=== PATIENT | female | born 1970 | race Caucasian/White ===

== ENCOUNTER 2018-10-23 19:47 | Emergency (ER) | payer OTHER ==
[~2018-10-23] VITALS: Ht 154.9 cm; Wt 55.3 kg
[~2018-10-23 19:47] MED LIST: ACEBUTCAFT PO; ALBU90OI INH; ALPR.5 PO; ASPI325; AZIT250 PO; Bactrim Ds Tab1 EACH PO; Benadryl 50 mg50 MG PO; CIPR500 PO; CLON.1 PO; CLON2 PO; CODBUTACEC PO; CODGUAEL PO; CONEST.9 PO; CRUTCH4 USE; CYCL10 PO; FLONASE ALLERG9.9 ML; HYDACE10B PO; HYDACE5 PO; IBUP200 PO; IBUP600 PO; LEVFLO500 PO; LOSA50 PO; METH10 PO; MULTIVITAMIN; NAPR220 PO; OXYACE5T PO; PIRO10 PO; PRED20 PO; PREMARIN; PROM25 PO; PSEU30 PO; Pepcid40 MG PO; Prednisone20 MG PO; TRAM50 PO; Vistaril25 MG PO; Voltaren100 GM TP
[2018-10-23] MEDS ORDERED: Bactrim Ds Tab1 EACH PO (19:58)
== END 2018-10-23 19:55 | disposition home or self-care (01) ==
LOC: ER 19:47
DX: L02.411 Cutaneous abscess of right axilla (principal); Z91.030 Bee allergy status; Z79.899 Other long term (current) drug therapy; Z79.52 Long term (current) use of systemic steroids; G43.909 Migraine, unspecified, not intractable, without status migrainosus; I25.10 Atherosclerotic heart disease of native coronary artery without angina pectoris; F17.210 Nicotine dependence, cigarettes, uncomplicated
CPT/HCPCS: 99283

== ENCOUNTER → 2019-04-04 | Outpatient (CLI) | payer OTHER ==
[2019-04-04 12:21] LABS: Source, Urine Clean Catch
[2019-04-04 16:10] LABS: Bilirubin, Urine Neg (Neg); Blood, Urine Neg (Neg); Glucose Qualitative, Urine Neg (Neg); Ketones, Urine Neg (Neg); Leukocyte Esterase, Urine Neg (Neg); Nitrite, Urine Neg (Neg); Protein, Urine Neg (Neg); Specific Gravity, Urine 1.025 (1.003-1.022); Urobilinogen, Urine NORM (Normal)
[2019-04-04 16:34] LABS: Appearance, Urine Clear (Clear); Color, Urine Yellow (P-Yellow)
== END | disposition home or self-care (01) ==
LOC: LAB 11:45 → LAB SHORT 11:45
PROVIDERS: Obstetrics & Gynecology
DX: R10.2 Pelvic and perineal pain (principal)
CPT/HCPCS: 81003

== ENCOUNTER → 2021-06-06 | Outpatient (CLI) | payer OTHER | END | disposition home or self-care (01) | LOC: LAB SHORT 18:08 | DX: R10.13 Epigastric pain (principal); R07.9 Chest pain, unspecified; R53.83 Other fatigue | CPT/HCPCS: 71046; 83690; 84443; 84484; 85379 ==

== ENCOUNTER 2023-10-11 21:49 | Emergency (ER) | payer OTHER ==
[~2023-10-11] VITALS: Ht 154.9 cm; Wt 59.0 kg
[2023-10-11 22:21] LABS: BASOPHILS ABSOLUTE AUTO 0.05 K/mm3 (0.00-0.23); BASOPHILS PERCENT AUTO 1 % (0-2); EOSINOPHILS ABSOLUTE AUTO 0.23 K/mm3 (0.00-0.68); EOSINOPHILS PERCENT AUTO 3 % (0-6); Hematocrit 39.6 % (33.0-51.0); Hemoglobin 13.2 g/dL (11.5-16.0); IMMATURE GRAN ABSOLUTE AUTO 0.01 K/mm3 (0.00-0.10); IMMATURE GRAN PERCENT AUTO 0 % (0-1); LYMPHOCYTES ABSOLUTE AUTO 3.71 K/mm3 (0.84-5.20); LYMPHOCYTES PERCENT AUTO 48 % (21-46); MONOCYTES ABSOLUTE AUTO 0.51 K/mm3 (0.16-1.47); MONOCYTES PERCENT AUTO 7 % (4-13); Mean Corpuscular HGB 32.3 pg (26.0-34.0); Mean Corpuscular HGB Conc 33.3 g/dL (31.5-36.5); Mean Corpuscular Volume 97 fL (80-100); Mean Platelet Volume 9.3 fL (9.1-12.4); NEUTROPHILS ABSOLUTE AUTO 3.27 K/mm3 (1.96-9.15); NEUTROPHILS PERCENT AUTO 42 % (41-73); Platelet Count 299 K/mm3 (150-400); RDW Coefficient Variation 13.1 % (11.7-14.2); RDW Standard Deviation 46.6 fL (35.1-46.3); Red Blood Cell Count 4.09 M/mm3 (3.80-5.20); White Blood Cell Count 7.78 K/mm3 (4.00-11.30)
[2023-10-11 22:42] LABS: Albumin, Blood 3.6 g/dL (3.4-5.0); Bilirubin, Total 0.2 mg/dL (0.1-1.0); Bun/Creatinine Ratio 14.1 (12.0-20.0); Calcium, Blood 8.8 mg/dL (8.5-10.1); Creatinine, Blood 0.99 mg/dL (0.40-1.00); Globulin, Blood 3.6 g/dL (2.2-4.0); Potassium, Blood 4.3 mmol/L (3.5-5.5); Total Protein, Blood 7.2 g/dL (6.4-8.2)
[2023-10-12 02:12] VITALS: BP 118/74
== END 2023-10-12 02:14 | disposition home or self-care (01) ==
LOC: ER 21:49
PROVIDERS: Physician Assistant
DX: R55 Syncope and collapse (principal); F17.200 Nicotine dependence, unspecified, uncomplicated; G43.909 Migraine, unspecified, not intractable, without status migrainosus; Z79.52 Long term (current) use of systemic steroids; Z79.899 Other long term (current) drug therapy; Z91.030 Bee allergy status
CPT/HCPCS: 70496; 70498; 80053; 85025; 93005; 93010; 99284-25; Q9967